=== PATIENT | female | born 1980 | race Caucasian/White ===

== ENCOUNTER → 2024-11-07 | Outpatient (CLI) | payer MEDICAID, SELFPAY ==
--- NOTE | 2024-11-07 15:15 | XR_ITS ---
Examination: Ultrasound abdominal aorta Date and time: November 07, 2024 1538 hours INDICATIONS: Smoking history 32 years TECHNIQUE AND FINDINGS: Sonographic images abdominal aorta Transverse dimension proximal aorta 2.2 cm mid aorta 1.7 cm, distal aorta 1.6 cm right iliac 0.9 cm left iliac 0.8 cm IMPRESSION: Negative for abdominal aortic aneurysm
== END | disposition home or self-care (01) ==
PROVIDERS: PCP Nurse Practitioner Family; Referring Provider Nurse Practitioner Family; Visit Provider Nurse Practitioner Family
DX: R05.9 Cough, unspecified (principal); F17.210 Nicotine dependence, cigarettes, uncomplicated; Z12.2 Encounter for screening for malignant neoplasm of respiratory organs
CPT/HCPCS: 76706

== ENCOUNTER → 2024-11-16 | Outpatient (CLI) | payer MEDICAID, SELFPAY ==
--- NOTE | 2024-11-16 16:51 | XR_ITS ---
Examination: CT chest, without intravenous contrast. Sagittal and coronal 2-D reconstructions. Exam date and time: November 16, 2024 1712 hours INDICATIONS: Smoking history, chronic cough with sputum production 1 year CTDI:vol (mGy) 10.6 DLP: (mGycm) 431 Technique: Multiple 3.0 mm axial sections of the chest to been obtained. Bone and lung density settings are obtained. Sagittal and coronal 2-D reconstructions have been obtained. Low dose protocols were performed. One or more of the following dose reduction techniques were used; automated exposure control, adjustment of the mA and/or KV according to patient size, use of iterative reconstruction technique. Findings: Thoracic aortic aneurysmal dilatation Pulmonary artery segments are not enlarged. Significant calcification left anterior descending coronary artery No paratracheal tracheobronchial or bronchopulmonary adenopathy 4 mm pulmonary nodule anterior segment right upper lobe image 159 10 mm calcified granuloma left lower lobe No pneumonia or pulmonary edema or pleural disease 4.3 cm splenic cyst Contracted gallbladder IMPRESSION: 4 mm pulmonary nodule anterior segment right upper lobe, with this study as baseline recommend continued 6 month follow-up CT chest without contrast
== END | disposition home or self-care (01) ==
LOC: SCAT 16:42
PROVIDERS: PCP Nurse Practitioner Family; Referring Provider Nurse Practitioner Family; Visit Provider Nurse Practitioner Family
DX: Z12.2 Encounter for screening for malignant neoplasm of respiratory organs (principal); R91.1 Solitary pulmonary nodule; F17.210 Nicotine dependence, cigarettes, uncomplicated
CPT/HCPCS: 71271